=== PATIENT | female | born 1955 | race Two or more races ===

== ENCOUNTER 2018-05-20 15:13 | Outpatient (CLI) | payer OTHER | END 2018-05-20 16:08 | disposition home or self-care (01) | LOC: RAD 15:13 | DX: M25.552 Pain in left hip (principal) ==

== ENCOUNTER → 2018-10-29 | Outpatient (CLI) | payer OTHER | END | disposition home or self-care (01) | LOC: RAD 501 13:38 | DX: M79.641 Pain in right hand (principal); M79.642 Pain in left hand ==

== ENCOUNTER 2019-03-18 10:46 | Outpatient (CLI) | payer OTHER | END 2019-03-18 10:58 | disposition home or self-care (01) | LOC: RAD 501 10:46 | DX: M25.551 Pain in right hip (principal); M25.552 Pain in left hip ==

== ENCOUNTER → 2019-03-25 | Outpatient (CLI) | payer OTHER | END | disposition home or self-care (01) | LOC: NUCLEAR 12:56 | DX: M81.0 Age-related osteoporosis without current pathological fracture (principal) ==

== ENCOUNTER 2021-10-10 11:43 | Outpatient (CLI) | payer OTHER | END 2021-10-10 11:49 | disposition home or self-care (01) | LOC: RAD 11:43 | PROVIDERS: ATTEND Orthopaedic Surgery | DX: M25.511 Pain in right shoulder (principal); M25.521 Pain in right elbow ==